=== PATIENT | male | born 1955 | race Caucasian/White ===

== ENCOUNTER 2017-10-28 15:20 | Observation (INO) | payer BC, SELFPAY ==
[2017-10-28 15:56] LABS: Hemoglobin 16.8 g/dL (14.0-18.0); Mean Corpuscular Hemoglobin 31.1 pg (27.0-31.0); Mean Corpuscular Volume 91.3 fl (80.0-94.0); Mean Platelet Volume 6.9 fL (7.4-10.4); Platelet Count 316 thou/uL (130-400); RBC Distribution Width 11.9 % (11.5-14.5); Red Blood Cell (RBC) Count 5.39 mill/uL (4.70-6.10); White Blood Cell (WBC) Count 22.3 thou/uL (4.8-10.8)
[2017-10-28 16:12] LABS: Band 2 % (5-11); Lymphocytes 2 % (21-51); MDiff Complete? YES; Monocytes 3 % (0-10); Neutrophil 93 % (42-75); PLT Morphology Comment Appears Adequate
[2017-10-28 16:13] LABS: ALT (SGPT) 21 U/L (8-55); AST (SGOT) 19 U/L (5-34); Albumin 4.2 g/dL (3.4-4.8); Alkaline Phosphatase 68 U/L (40-150); Anion Gap 14 mmol/L (10-20); BUN (Urea Nitrogen) 16 mg/dL (8.4-25.7); Bilirubin, Total 1.4 mg/dL (0.2-1.2); Calc. Creatinine Clearance 0 mL/min (70-130); Calcium 9.4 mg/dL (7.8-10.44); Carbon Dioxide 21 mmol/L (23-31); Chloride 101 mmol/L (98-107); Estimated GFR-MDRD 81; Globulin 2.8 g/dL (2.4-3.5); Glucose 143 mg/dL (80-115); Potassium 3.9 mmol/L (3.5-5.1); Sodium 132 mmol/L (136-145)
--- NOTE | 2017-10-28 16:24 | RAD ---
PORTABLE AP CHEST X-RAY 10/28/17 HISTORY: Dyspnea, shortness of breath and fever. FINDINGS: The cardiac silhouette and pulmonary vasculature are within normal limits. Lungs are clear. Calcified granuloma overlies the right lung apex. Osseous structures are intact. IMPRESSION: No acute cardiopulmonary process. POS: [facility]
[2017-10-28] MEDS ORDERED: ISOVUE-370 76%-LOCM 1 ML ONE (16:57)
[2017-10-28] MEDS ORDERED: Acetaminophen 500 MG TAB ONE (16:58)
[2017-10-28] MEDS ORDERED: Azithromycin 500 MG VIAL ONE (17:21)
[2017-10-28] MEDS ORDERED: cefTRIAXone\\ROCEPHIN 2 GM in Sodium Chloride 0.9% 100 ML IVPB SCH (17:30)
--- NOTE | 2017-10-28 17:40 | CT ---
CTA THORAX WITH CONTRAST: 10/28/17 (Computed Tomographic Angiography, chest(noncoronary) with contrast material, and image postprocessin g) (PE protocol) HISTORY: 62-year-old male with dyspnea, cough, and fever. TECHNIQUE: IV injection of iodinated contrast: 100 mL of Isovue 370. Scan acquisition timing attempted to coincide with iodinated contrast bolus reaching maximal density in pulmonary arteries. 3D MIP reconstructions. FINDINGS: Small focal air space opacity at posterior aspect of a basilar segment of the right lower lobe, conta ining small air bronchograms, and at least one tiny cavitation. This consolidation is approximately 2 x 2.5 x 2.5 cm. In the contralateral left lower lobe, there is a much larger region of air space opacity, extending f rom the left inferior hilum to the basilar, diaphragmatic surface, also with air bronchograms. There is a smaller focal consolidation in the adjacent posterior medial aspect of the lingula. The bilateral upper lobes are grossly clear. No pleural effusion or pneumothorax. There is a small sl iding hiatal hernia. No aortic aneurysm or dissection. No evidence of pulmonary thromboembolism. At l east mild cardiomegaly. There are nonspecific mildly enlarged mediastinal lymph nodes. IMPRESSION: 1. Bilateral pneumonia. The largest infiltrate is in the left lower lobe, and the other smaller infiltrates in the right lower lobe and in the lingula. 2. No evidence of pulmonary thromboembolism. 3. Small sliding hiatal hernia. fritz[] POS: [facility]
[2017-10-28] MEDS ORDERED: Ondansetron ODT 4 MG TAB SL PRN (19:01)
[2017-10-28] MEDS ORDERED: Acetaminophen 325 MG TAB PO PRN (19:01)
[2017-10-28] MEDS ORDERED: Ondansetron HCl/PF 4 MG/2 ML Vial IVP PRN (19:01)
--- NOTE | 2017-10-29 01:33 | HP ---
DATE OF ADMISSION: 10/28/2017 PRIMARY CARE PHYSICIAN: None. CHIEF COMPLAINT: Cough. HISTORY OF PRESENT ILLNESS: Mr. Hogan is a pleasant 62-year-old male with a history in the past of hypertension treated about 6 months, but he felt was white coat syndrome which has not required treat ment since then for many years. He presented to the emergency department with 3 weeks of shortness of breath and cough. He is having some difficulty getting deep breaths and some discomfort. He did have cough productive of phlegm th at was greenish to brownish starting around one week faye or so and has had on and off fever since en. Workup at the emergency department showed a white count of 22.3 with 92% granulocytes and 2% bands, h e was febrile to 100.9 and chest x-ray initially is negative. Due to a D-dimer that is barely elevat ed at 0.96. A CT angiogram was obtained that showed right lower lobe more than left lower lobe and l ingular infiltrates consistent with pneumonia. We were subsequently called for admission. He did meet sepsis criteria due to elevated pulse of 116, temperature of 100.9, elevated white count and presumed bacterial source. He only got 1 liter of fluids in the emergency department, although i t was 100 kilos, it should have gotten close to 3 liters, but has been feeling better since he got th e fluids and Rocephin and azithromycin. No other current complaints. PAST MEDICAL HISTORY: Possible hypertension in the past. Of note, he is hypertensive here in the em ergency department up to 217/112 on arrival; however, he states only white coat syndrome and takes hi s blood pressure at home 3 or 4 times a week and they are normal in the 120s. PAST SURGICAL HISTORY: 1. Laparoscopic cholecystectomy. 2. [place] tooth removal x4 in his 30s. HOME MEDICATIONS: None. ALLERGIES: TETANUS VACCINE caused anaphylaxis and ADACEL. FAMILY HISTORY: Negative for clotting or bleeding disorder, no immune dysfunction, and no premature coronary artery disease. SOCIAL HISTORY: Negative for habits x3. He only drinks social alcohol very rarely. 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 REVIEW OF SYSTEMS: A 10-point review of systems was performed, negative for all other systems except as stated per HPI. PHYSICAL EXAMINATION: VITAL SIGNS: Temperature currently 98.0, T-max since being in the ER is 100.9, current pulse 80 down from 116. Blood pressure is 181/56, respiratory rate 22, satting 97% on room air. GENERAL: He is awake. He is alert. He is oriented x3. He is a well-developed, well-nourished, whi te male who appears to be in zero distress. HEENT: Normocephalic, atraumatic. His pupils equal, round, reactive to light bilaterally, mucous me mbranes are moist. No visible lesions. No thrush. NECK: Supple. There is no lymphadenopathy, JVD or thyromegaly. Normal carotid upstrokes. I do not appreciate bruits. LUNGS: Clear to auscultation anteriorly, posteriorly, has some faint basilar crackles. There is no dullness and no E to A changes. He has no prolonged expiratory phase and no wheezes. CARDIOVASCULAR: He is normocardic and regular. Normal S1 and S2. No S3 or S4. He has 2+ dorsalis pedis and posterior tibial pulses. There is some trace pedal edema. ABDOMEN: Soft, it is nontender, nondistended. No masses or organomegaly. He has no rebound, rigidi ty or guarding. EXTREMITIES: Show no cyanosis or clubbing. SKIN: Warm, moist and well perfused. He has no rash or lesions. Skin overlying his patella bilater ally slightly cooler. NEUROLOGIC: Cranial nerves II-XII are grossly intact. He has normal speech pattern, 5/5 strength in all 4 extremities. There are no focal deficits. MUSCULOSKELETAL: Normal to inspection. No palpable effusions and no signs of inflammation. LABORATORY DATA: Sodium 132, potassium 3.9, chloride 101, bicarb 21, BUN 16, creatinine 0.94, glucos e of 143, normal calcium. Liver function completely within normal limits, total bilirubin is slightly elevated at 1.4. CBC show ed a white count of 22.3, 92% granulocytes, 2% bands, 2% lymphocytes. Absolute lymphocyte count is 1 100. Hemoglobin 16.8, hematocrit 49.2 and platelet count 316,000. RADIOGRAPHIC STUDIES: He had chest x-ray that showed no acute cardiopulmonary disease. CT angiogram showed left lower lobe more than right lower lobe and lingular opacity consistent with pneumonia. ASSESSMENT AND PLAN: 1. Community-acquired pneumonia: Left lower lobe more than right lower lobe and little in the lingu la. He has absolute lymphocyte count down to 1100. I suspect those are due to consumption, due to i mmune response and likely represented a nonbacterial pneumonia. However, given the duration, and sep sis criteria, we will keep him overnight in observation. We will give him IV fluids overnight, and p lace him on oral Levaquin 750 mg p.o. q.a.m. He is not requiring any oxygen. Repeat laboratories in the morning. I certainly think he can go home tomorrow on oral Levaquin if he is feeling better and his temperature and laboratories are improving. 2. Elevated blood pressure reading: The patient denies having history of high blood pressure. Cert ainly came at 217/112, 181/56 now, and says is a white coat syndrome. We will add p.r.n. hydralazine 5 mg available for systolic over 180 if he is willing to accept that. 3. Place him on Lovenox 40 mg subcutaneously and Pepcid 20 b.i.d. for deep venous thrombosis and gas trointestinal prophylaxis respectively. 4. Sepsis: The patient does meet sepsis criteria.
[2017-10-29] MEDS ORDERED: HYDROcodone/Acetaminophen 10/325 mg Tablet PO PRN (02:10)
[2017-10-29] MEDS ORDERED: Ondansetron HCl/PF 4 MG/2 ML Vial IVP PRN (02:10)
[2017-10-29] MEDS ORDERED: Guaifenesin DM 100-10/5 ML UDCUP PO PRN (02:10)
[2017-10-29] MEDS ORDERED: Benzonatate 100 MG CAP PO PRN (02:10)
[2017-10-29] MEDS ORDERED: HYDROcodone/Acetaminophen 5/325 mg Tablet PO PRN (02:10)
[2017-10-29] MEDS ORDERED: Enoxaparin Sodium 40 MG/0.4 ML SYRINGE SC SCH (02:10)
[2017-10-29] MEDS ORDERED: Acetaminophen 325 MG TAB PO PRN (02:10)
[2017-10-29] MEDS ORDERED: Ondansetron ODT 4 MG TAB PO PRN (02:10)
[2017-10-29 02:39] VITALS: BMI 29.9
[2017-10-29] MEDS: Sodium Chloride 0.9% 1,000 ML IV SCH ×2 (04:20→13:36)
[2017-10-29] MEDS: hydrALAZINE 20 MG/ML VIAL SLOW IVP PRN ×2 (04:45→06:59)
[2017-10-29 04:57] LABS: #Lymphocytes 0.8 thou/uL (1.20-3.40); #Monocytes 1.3 thou/uL (0.11-0.59); #Neutrophils 13.3 thou/uL (1.40-6.50); %Basophils 0.1 % (0.0-1.0); %Eosinophils 0.3 % (0.0-10.0); %Lymphocytes 5.3 % (21.0-51.0); %Monocytes 8.4 % (0.0-10.0); Hemoglobin 15.2 g/dL (14.0-18.0); Mean Corpuscular HGB CONC 33.5 g/dL (32.0-36.0); Mean Corpuscular Hemoglobin 30.9 pg (27.0-31.0); Mean Corpuscular Volume 92.1 fl (80.0-94.0); Mean Platelet Volume 6.6 fL (7.4-10.4); Platelet Count 266 thou/uL (130-400); RBC Distribution Width 11.7 % (11.5-14.5); Red Blood Cell (RBC) Count 4.92 mill/uL (4.70-6.10); White Blood Cell (WBC) Count 15.5 thou/uL (4.8-10.8)
[2017-10-29 05:14] LABS: Anion Gap 12 mmol/L (10-20); BUN (Urea Nitrogen) 17 mg/dL (8.4-25.7); Calc. Creatinine Clearance 128 mL/min (70-130); Carbon Dioxide 23 mmol/L (23-31); Chloride 106 mmol/L (98-107); Estimated GFR-MDRD Greater than 90; Glucose 117 mg/dL (80-115); Potassium 3.8 mmol/L (3.5-5.1); Sodium 137 mmol/L (136-145)
[2017-10-29] MEDS ORDERED: FLU VACC QS2017-18 36 mo. & older 0.5 ML SYRINGE IM ONE (09:00)
[2017-10-29] MEDS: Famotidine 20 MG TAB PO SCH ×2 (09:16→19:59)
[2017-10-29] MEDS ORDERED: Metoprolol Tartrate 25 MG TAB PO SCH (10:45)
[2017-10-29] MEDS: cloNIDine 0.1 MG TAB PO PRN (13:31)
[2017-10-29] MEDS ORDERED: hydrALAZINE 20 MG/ML VIAL SLOW IVP PRN (15:06)
--- NOTE | 2017-10-29 15:50 | PDOC.PN ---
- Subjective Encounter Start Date: 10/29/17 Encounter Start Time: 15:45 Subjective: wants to go home.care discussed in detail but he is adamant -: BP very high but wouldn't like to take meds -: feels that this is only "white Coat" syndrome - Objective Resuscitation Status: Resuscitation Status FULL:Full Resuscitation MAR Reviewed: Yes Vital Signs & Weight: Vital Signs (12 hours) Temp Pulse Resp BP BP Pulse Ox 10/29/17 13:31 188/94 H 10/29/17 12:00 97.7 F 96 18 192/86 H 96 10/29/17 08:00 98.1 F 93 18 178/86 H 178/86 H 95 10/29/17 06:59 88 10/29/17 06:56 88 208/98 H 10/29/17 05:13 197/95 H 10/29/17 04:56 80 20 189/91 H 10/29/17 04:45 79 10/29/17 04:00 98.3 F 79 20 201/95 H 91 L Weight Weight 217 lb I&O: 10/28/17 10/29/17 10/30/17 06:59 06:59 06:59 Intake Total 240 920 Output Total 850 100 Balance -610 820 Result Diagrams: 10/29/17 04:49 10/29/17 04:49 Additional Labs: Microbiology 10/28/17 15:34 Venous blood - Right Hand Blood Culture - Preliminary Specimen has been received and culture in progress. No Growth to date. 10/28/17 15:30 Venous blood - Left Arm Blood Culture - Preliminary Specimen has been received and culture in progress. No Growth to date. Phys Exam - Physical Examination Constitutional: NAD HEENT: PERRLA, moist MMs, sclera anicteric, oral pharynx no lesions Neck: no nodes, no JVD, supple, full ROM Respiratory: no wheezing, no rales, no rhonchi, clear to auscultation bilateral Cardiovascular: RRR, no significant murmur, no rub, gallop Gastrointestinal: soft, non-tender, no distention, positive bowel sounds Musculoskeletal: no edema, pulses present Neurological: non-focal, normal sensation, moves all 4 limbs Psychiatric: normal affect, A&O x 3 Skin: no rash Dx/Plan (1) CAP (community acquired pneumonia) Code(s): J18.9 - PNEUMONIA, UNSPECIFIED ORGANISM Status: Acute (2) Hypertensive urgency Code(s): I16.0 - HYPERTENSIVE URGENCY Status: Acute - Plan DVT proph w/SCDs cont ABx. Add BB.monitor. -: PRN antihypertensives -: High risk of cardiac or neurologic events w high BP. -: not stable for DC.will follow * . Review of Systems - Medications/Allergies Allergies/Adverse Reactions: Allergies Allergy/AdvReac Type Severity Reaction Status Date / Time diphtheria,pertussis Allergy Severe Verified 10/28/17 20:13 (acellular),te [From Adacel(Tdap Adolesn/Adult)(PF)] Medications: Current Medications Acetaminophen (Tylenol) 650 mg PO Q4H PRN PRN Reason: Headache/Fever or Pain Hydrocodone Bitart/Acetaminophen (Banks 10/325) 1 tab PO Q4H PRN PRN Reason: Severe Pain (7-10) Hydrocodone Bitart/Acetaminophen (Banks 5/325) 1 tab PO Q4H PRN PRN Reason: Moderate Pain (4-6) Benzonatate (Tessalon) 100 mg PO Q4H PRN PRN Reason: Cough Clonidine (Catapres) 0.1 mg PO Q4H PRN PRN Reason: sbp>160 Last Admin: 10/29/17 13:31 Dose: 0.1 mg Famotidine (Pepcid) 20 mg PO BID FOR[facility], [facility]1983 Last Admin: 10/29/17 09:16 Dose: 20 mg Guaifenesin/Dextromethorphan (Robitussin Dm) 15 ml PO Q4H PRN PRN Reason: Cough Hydralazine HCl (Apresoline) 10 mg SLOW IVP Q3H PRN PRN Reason: SBP > 180 Sodium Chloride (Normal Saline 0.9%) 1,000 mls @ 100 mls/hr IV .Q10H FOR[facility], [facility] Last Admin: 10/29/17 13:36 Dose: 1,000 mls Levofloxacin (Levaquin) 750 mg PO 0600 [facility], [facility] Last Admin: 10/29/17 05:19 Dose: 750 mg Metoprolol Tartrate (Lopressor) 12.5 mg PO BID [facility]1983 Ondansetron HCl (Zofran Odt) 4 mg PO Q6H PRN PRN Reason: Nausea/Vomiting Ondansetron HCl (Zofran) 4 mg IVP Q6H PRN PRN Reason: Nausea/Vomiting
[2017-10-29] MEDS ORDERED: Temazepam 15 MG CAP PO PRN (16:31)
[2017-10-29] MEDS: Metoprolol Tartrate 25 MG TAB PO SCH (20:00)
[2017-10-30] MEDS: cloNIDine 0.1 MG TAB PO PRN (03:45)
[2017-10-30] MEDS: Sodium Chloride 0.9% 1,000 ML IV SCH (09:39)
[2017-10-30] MEDS: Famotidine 20 MG TAB PO SCH (09:41)
[2017-10-30] MEDS: Metoprolol Tartrate 25 MG TAB PO SCH (09:41)
[2017-10-30 11:32] VITALS: BP 150/78; TEMP 98
--- NOTE | 2017-10-30 11:35 | DIS ---
DATE OF ADMISSION: 10/28/2017 DATE OF DISCHARGE: 10/30/2017 DIAGNOSES AT THE TIME OF DISCHARGE: 1. Community-acquired pneumonia. 2. Hypertensive urgency. 3. Severe anxiety. CONSULTANTS: None. HOSPITAL COURSE: The patient is a 62-year-old male with past medical history of hypertensi on, on and off, most likely related to white coat syndrome who presented to the emergency room with 3 weeks of shortness of breath and cough. Workup in the emergency room showed a white count of 22.3 w ith 92% granulocytes with 2% bands. He was febrile at 100.9. The chest x-ray initially was negative , but due to D-dimer at 0.96, the CT angiogram was obtained that showed right lower lobe more than le ft lower lobe lingular infiltrates consistent with pneumonia. He was admitted to the hospital and [facility] on levofloxacin. His blood pressure was up to 200 systolic with diastolic of 112. It graduall y went down. He was placed on p.r.n. hydralazine, then metoprolol was added. [facility] His white count is down to 15.5 yesterday from 22.3 two days ago. We do not have any reading today, but clinically he is doing well. He still has some cough, but there is no fever. He is able to ambulate in the hallway without any problems. His blood cultures came back negative. He is discharged home in good condition with recommendation to stay on heart healthy diet. MEDICATIONS ON DISCHARGE: At the time of discharge, metoprolol tartrate 12.5 mg twice a day, Levoflo xacin 750 mg x7 tablets and saccharomyces boulardii 250, 10 capsules. He is supposed to do activity as tolerated and follow up with his primary care physician in 1 week. His medications were sent out electronically to the pharmacy and the patient was seen and examined before he is discharged and the discharge time is less than 30 minutes.
--- NOTE | 2017-11-12 15:08 | EKG ---
Test Reason : Blood Pressure : / mmHG Vent. Rate : 117 BPM Atrial Rate : 117 BPM P-R Int : 168 ms QRS Dur : 088 ms QT Int : 326 ms P-R-T Axes : 055 -45 044 degrees QTc Int : 454 ms Sinus tachycardia Left atrial enlargement Left anterior fascicular block Abnormal ECG Confirmed by WILLY ZAMBRANO D.O. ([id number]), restaurant expeditor PATRICIA MARIE ([id number] on 11/12/2017 3:07:47 PM Referred By: Confirmed By:WILLY ZAMBRANO D.O.
== END 2017-10-30 11:43 | disposition home or self-care (01) ==
LOC: ERS 15:20 → 2NO 18:44 → INTOOBSV 18:44
PROVIDERS: ADMIT Internal Medicine; ATTEND Internal Medicine
DX: J18.9 Pneumonia, unspecified organism (principal); I16.0 Hypertensive urgency; F41.9 Anxiety disorder, unspecified; I10 Essential (primary) hypertension; Z88.7 Allergy status to serum and vaccine; Z90.49 Acquired absence of other specified parts of digestive tract; Z98.818 Other dental procedure status
CPT/HCPCS: 36415; 71045; 71275; 80048; 80053; 83605; 85025; 85379; 87040; 93005; 96361; 96365; 96372; 96375; 96376; G0378; J0360; J0456; J0696; J1650; J7050